=== PATIENT | female | born 1935 | race Caucasian/White ===

== ENCOUNTER 2018-01-31 08:03 | Day surgery (SDC) | payer MEDICARE, MEDICAID ==
[2018-01-31] MEDS ORDERED: Lactated Ringer's 500 ML IV ONE (09:06)
[2018-01-31] MEDS ORDERED: Etomidate 20 mg/10ml Inj IV ONE (10:14)
[2018-01-31] MEDS ORDERED: Propofol 10 mg/ml Inj (20 ML) ONE (10:14)
[2018-01-31 11:12] VITALS: BP 169/68; PULSE 79; RESP 18; TEMP 98; O2SAT 99
== END 2018-01-31 11:27 | disposition home or self-care (01) ==
LOC: H.ENDO 08:03
PROVIDERS: ATTEND Internal Medicine Gastroenterology
DX: K63.1 Perforation of intestine (nontraumatic) (principal); I48.91 Unspecified atrial fibrillation; J45.909 Unspecified asthma, uncomplicated; E11.9 Type 2 diabetes mellitus without complications; M19.90 Unspecified osteoarthritis, unspecified site; K64.8 Other hemorrhoids; D12.2 Benign neoplasm of ascending colon; Z09 Encounter for follow-up examination after completed treatment for conditions other than malignant neoplasm
CPT/HCPCS: 45380; 82948; 88305; J2001; J2704; J7120